=== PATIENT | male | born 1970 | race Caucasian/White ===

== ENCOUNTER 2022-09-07 07:46 | Outpatient (CLI) | payer BC, SELFPAY ==
--- NOTE | 2022-09-07 08:00 | CRLHL7_ITS ---
For Patients: As a result of the Cures Act, medical imaging exams and procedure reports are released immediately into your electronic medical record. You may view this report before your referring provider. If you have questions, please contact your health care provider. [facility] ??? [facility] MYOCARDIAL PERFUSION SCAN CLINICAL HISTORY: 51-year-old male. Hypercholesterolemia. Shortness of breath. COVID-19 infection in January 2022. 5 feet 9 inches, 175 pounds. TECHNIQUE: (Resting SPECT and Stress Gated SPECT with wall motion and ejection fraction) Stress: Treadmill (10 minutes 1 second) Maximum heart rate: 154 bpm Maximum systolic blood pressure: 150 mmHg systolic Rate pressure product: 23,100 Dose (Stress/Rest): 31.5 mCi/8.35 mCi Tc-99m Sestamibi (IV) Comparison: None FINDINGS: There is good uptake of activity by the left ventricle. No left ventricular enlargement is noted. There is mild soft tissue attenuation. No other significant fixed or reversible defects are identified. The gated images demonstrate a normal left ventricular ejection fraction of 66 percent. No regional wall motion abnormalities are identified. IMPRESSION: 1. There is no evidence of significant myocardial ischemia or infarction. 2. Normal left ventricular ejection fraction of 66 percent. This study was jointly reviewed by radiology and cardiology. GILBERT MALDONADO M.D. [email or web address] Transcribed: 3:17 p.m. DEBRA OLIVARES M.D. [facility]/Dictated by: Gilbert Maldonado MD @ 09/07/2022 2:09:00 PM (Electronically Signed)
[2022-09-07 11:16] VITALS: BP 121/82; PULSE 86
--- NOTE | 2022-09-07 17:09 | W.PM.STED ---
Stress Test Note Date Date of test: 09/07/22 Providers Primary care provider: Not a Local Provider Stress test physician: Darrel Driscoll Stress Test Note Stress test ordered: Stress Echo Indication for test: Hyperlipidemia Results discussion: Patient is a very nice gentleman who presents for the above test, stress echo was ordered, discussion the risks benefits side effects are done, pretest EKG shows normal sinus rhythm, no acute ST wave changes, incomplete right bundle branch block configuration, with the ventricular rate of 66 and a blood pressure 144 an 83 standard Ketan protocol is employed over a time course of minutes 1 seconds, achieved a metabolic open 11.7 Mets with a maximum heart rate of 154 which is 107% of the target, he had no chest pain no shortness of breath or any other anginal equivalent symptoms, during this test there is no ST wave changes suggestive of ischemia, no dysrhythmias, any recovered well conditioning was felt to be good Impression: Negative electrographic portion of stress echo Follow up suggested: Await cardiology's over read of the echocardiogram, patient assess exactly excellent condition, there were no complications, follow-up with the primary care physician is suggested.
== END 2022-09-07 07:47 | disposition home or self-care (01) ==
PROVIDERS: Visit Provider Family Medicine
DX: E78.00 Pure hypercholesterolemia, unspecified (principal); R61 Generalized hyperhidrosis
CPT/HCPCS: 78452; 93016; 93017; A9500